=== PATIENT | male | born 1950 | race Caucasian/White ===

== ENCOUNTER → 2016-11-02 | Outpatient (CLI) | payer MEDICARE, OTHER ==
[~2016-11-02] MED LIST: FINA5TAB11 PO; GABA-290 PO; LITH600C PO; LITHTAB PO
[2016-11-02 11:28] LABS: CLARITY URINE CLEAR (CLEAR); COLOR URINE YELLOW (YELLOW); GLUCOSE URINE NEGATIVE (NEGATIVE); KETONES URINE NEGATIVE (NEGATIVE); LEUKOCYTE ESTERASE URINE NEGATIVE (NEGATIVE); NITRITE URINE NEGATIVE (NEGATIVE); OCCULT BLOOD URINE NEGATIVE (NEGATIVE); PH URINE 7.5 (4.5-8.0); PROTEIN URINE NEGATIVE (NEGATIVE); SPECIFIC GRAVITY URINE 1.013 (1.005-1.030)
[2016-11-02 11:39] LABS: BASOPHILS % 0.7 % (0.0-2.0); EOSINOPHILS % 2.6 % (0.0-5.0); HEMATOCRIT. 40.8 % (42.0-52.0); HEMOGLOBIN. 13.6 g/dL (14.0-18.0); LYMPHOCYTES % 28.1 % (20.0-50.0); MEAN CORPUSCULAR HEMOGLOBIN 28.8 pg (28.0-32.0); MEAN CORPUSCULAR VOLUME 86.2 fL (80.0-94.0); MEAN PLATELET VOLUME 7.4 fl (7.4-10.4); NEUTROPHILS % 60.6 % (40.0-76.0); PLATELET 302 x1000/uL (130-400); RED BLOOD CELL COUNT 4.73 mill/uL (4.7-6.1); RED CELL DISTRIBUTION WIDTH 14.4 % (11.6-14.6)
[2016-11-02 11:40] LABS: CARBON DIOXIDE 29 mEq/L (21-32); CHLORIDE 104 mEq/L (98-107)
== END | disposition home or self-care (01) ==
LOC: LAB 11:08
PROVIDERS: ATTEND Urology
DX: N52.9 Male erectile dysfunction, unspecified (principal)
CPT/HCPCS: 36415; 80048; 81003; 85025

== ENCOUNTER 2016-11-09 07:22 | Day surgery (SDC) | payer MEDICARE, OTHER ==
[~2016-11-09] VITALS: Ht 185.4 cm; Wt 93.9 kg
[2016-11-09] MEDS: LACTATED RINGERS 1,000 ML IV SCH ×2 (09:40→12:40)
[2016-11-09] MEDS ORDERED: DEXAMETHASONE 4MG/ML 1ML VIAL ONE ×2 (10:27→11:40)
[2016-11-09] MEDS ORDERED: LIDOCAINE HCL 1% 20ML VIAL (Pyxis) INJ ONE ×2 (10:27→11:40)
[2016-11-09] MEDS ORDERED: CEFAZOLIN SODIUM 1000MG/VIAL ONE ×2 (10:27→11:40)
[2016-11-09] MEDS ORDERED: ONDANSETRON HCL 4MG/2ML VIAL ONE ×2 (10:27→11:40)
[2016-11-09] MEDS ORDERED: PROPOFOL 200MG/20ML VIAL IV ONE ×2 (10:27→11:40)
[2016-11-09] MEDS ORDERED: GENTAMICIN SULF 40MG/ML 2ML VIAL ONE ×2 (10:38→11:17)
[2016-11-09] MEDS ORDERED: BACITRACIN ZINC 15GM TUBE TOP ONE (10:38)
[2016-11-09] MEDS ORDERED: BACITRACIN 50,000 UNITS/VIAL ONE (10:39)
[2016-11-09] MEDS ORDERED: NORMAL SALINE 0.9% 10 ML SYR ONE (10:39)
[2016-11-09] MEDS ORDERED: FENTANYL CITRATE/PF 50MCG/ML 2ML VIAL IV PRN (10:45)
[2016-11-09] MEDS ORDERED: RIFAMPIN 600 MG in SODIUM CHLORIDE 0.9% 100 ML IV NR (10:55)
[2016-11-09] MEDS ORDERED: SODIUM CHLORIDE 0.9% 10ML VIAL ONE (11:40)
[2016-11-09] MEDS ORDERED: VASOPRESSIN 20 UNIT/ML 1ML ONE (11:40)
== END 2016-11-09 14:25 | disposition home or self-care (01) ==
LOC: OR 07:22 → EDUNIT# 09:30 → OR 14:25
PROVIDERS: ATTEND Urology
DX: N52.9 Male erectile dysfunction, unspecified (principal); I10 Essential (primary) hypertension; K21.9 Gastro-esophageal reflux disease without esophagitis
CPT/HCPCS: 54405; 71010; 93005; A4216; J0690; J1100; J1580; J2405; J3490; J7120; J2704; J7050